=== PATIENT | female | born 1995 | race African-American/Black ===

== ENCOUNTER 2023-04-15 06:39 | Emergency (ER) | payer BC ==
[~2023-04-15] VITALS: Ht 162.6 cm; Wt 90.0 kg
[~2023-04-15 06:39] MED LIST: BACTRIM DS1 TAB OR; BACTROBAN2 % EX; DIFLUCAN150 MG PO; LOTRISONE EX; MIRALAX3350 NF PO; NO HOME MEDS; PROMETHAZINE25 MG OR
[2023-04-15] MEDS ORDERED: OFLOXACIN0.3 % OU (07:25)
[2023-04-15] MEDS ORDERED: ALLERGY RELF10 M3 PO (07:25)
[2023-04-15 07:38] VITALS: BP 119/85
== END 2023-04-15 07:39 | disposition home or self-care (01) | DRG 125 ==
LOC: ED 06:39
DX: H10.33 Unspecified acute conjunctivitis, bilateral (principal)

== ENCOUNTER 2024-10-13 15:36 | Emergency (ER) | payer OTHER ==
[~2024-10-13] VITALS: Ht 162.6 cm; Wt 104.0 kg
[2024-10-13] VITALS (9 sets, daily range): BP systolic 118–137; BP diastolic 81–98
[~2024-10-13 15:36] MED LIST changes: +ALLERGY RELF10 M3 PO; +OFLOXACIN0.3 % OU
[2024-10-13] MEDS ORDERED: NAPROXEN500 MG PO (17:51)
== END 2024-10-13 18:20 | disposition home or self-care (01) | DRG 563 ==
LOC: ED 15:36
DX: S93.402A Sprain of unspecified ligament of left ankle, initial encounter (principal); W17.2XXA Fall into hole, initial encounter